=== PATIENT | female | born 1990 | race Caucasian/White ===

== ENCOUNTER 2019-07-05 22:49 | Emergency (ER) | payer MEDICAID ==
--- NOTE | 2019-07-05 23:58 | ERPHSYRPT ---
- History of Present Illness Time Seen by Provider: 07/05/19 23:50 Historian: patient, family Exam Limitations: no limitations Patient Subjective Stated Complaint: pt states she is 14 weeks , has been having right flank pain, spotting, and has been having an occasional loss of vision for about 1 week Triage Nursing Assessment: Pt a&o. Ambulated to bed without difficulty. Respirations easy and non-labored. Abdomen soft and non-tender with palpation Physician History: 28 y/o obese white female presents with right flank pain and intermittent vaginal spotting. pt states she is 14 weeks . pt also has had intermittent visual changes. pt sees dr. costello july 12. pt has had an ultrasound after . per her report there is a single intrauterine fetus. pt denies abd pain. pt denies cp, denies soa. pt states she frequently get utis Timing/Duration: day(s) (a few ) Abdominal Pain Onset Location: flank (right flank) Pain Radiation: flank (right flank ) Severity of Pain-Max: mild Severity of Pain-Current: mild Modifying Factors: Improves With: movement Associated Symptoms: No chest pain, No diarrhea, No fever/chills, No loss of appetite, No nausea, No shortness of breath, No vomiting Previous symptoms: no prior history Allergies/Adverse Reactions: ibuprofen Allergy (Verified 07/05/19 23:23) throat swells, cannot take prescription dose but can take over the counter tramadol Allergy (Verified 07/05/19 23:23) throat swells Home Medications: Vits W-Ca,Fe,FA(<1Mg) [] 1 tab PO DAILY 07/05/19 [History] - Review of Systems Constitutional: No Symptoms Eyes: No Symptoms Ears, Nose, & Throat: No Symptoms Respiratory: No Symptoms Cardiac: No Symptoms Abdominal/Gastrointestinal: No Symptoms Genitourinary Symptoms: Flank Pain (right flank pain) Musculoskeletal: No Symptoms Skin: No Symptoms Neurological: No Symptoms Psychological: No Symptoms Endocrine: No Symptoms Hematologic/Lymphatic: No Symptoms Immunological/Allergic: No Symptoms All Other Systems: Reviewed and Negative - Past Medical History Pertinent Past Medical History: Yes Neurological History: No Pertinent History ENT History: No Pertinent History Cardiac History: No Pertinent History Respiratory History: No Pertinent History Endocrine Medical History: No Pertinent History Musculoskeletal History: No Pertinent History GI Medical History: No Pertinent History History: No Pertinent History Psycho-Social History: Bipolar, Other Other Medical History: adhd, ptsd, miscarriage - Past Surgical History Past Surgical History: Yes Neuro Surgical History: No Pertinent History Cardiac: No Pertinent History Respiratory: No Pertinent History Gastrointestinal: No Pertinent History Genitourinary: Other Musculoskeletal: No Pertinent History Female Surgical History: No Pertinent History Other Surgical History: exploratory surgery - urethra - Social History Smoking Status: Former smoker Exposure to second hand smoke: No Drug Use: none Patient Lives Alone: No - Female History Hx Now: Yes Expected Date of Delivery: 12/31/19 Gestational Age: 12+3 - Nursing Vital Signs Nursing Vital Signs: Initial Vital Signs Temperature 97.9 F 07/05/19 23:13 Pulse Rate 108 H 07/05/19 23:13 Respiratory Rate 18 07/05/19 23:13 Blood Pressure 105/78 07/05/19 23:13 O2 Sat by Pulse Oximetry 97 07/05/19 23:13 Pain Scale Pain Intensity 9 - Physical Exam General Appearance: no apparent distress, alert, anxiety, obese Eye Exam: PERRL/EOMI, eyes nml inspection Ears, Nose, Throat Exam: normal ENT inspection, moist mucous membranes Neck Exam: normal inspection, non-tender, supple, full range of motion Respiratory Exam: normal breath sounds, lungs clear, airway intact, No chest tenderness, No respiratory distress Cardiovascular Exam: regular rate/rhythm, normal heart sounds, normal peripheral pulses Gastrointestinal/Abdomen Exam: soft, normal bowel sounds, No tenderness Pelvic Exam: not done Rectal Exam: not done Back Exam: normal inspection, normal range of motion, CVA tenderness (right ), No vertebral tenderness Extremity Exam: normal inspection, normal range of motion, pelvis stable Neurologic Exam: alert, oriented x 3, cooperative, clinical program director II-XII nml as tested Skin Exam: normal color, warm, dry Lymphatic Exam: No adenopathy SpO2 Interpretation: normal SpO2: 97 O2 Delivery: Room Air - Course Nursing assessment & vital signs reviewed: Yes Ordered Tests: Active Orders 24 hr Category Date Time Status IV Insertion STAT Care 07/05/19 23:58 Active AMYLASE Stat Lab 07/05/19 00:25 Completed CBC W DIFF Stat Lab 07/05/19 00:25 Completed CMP Stat Lab 07/05/19 00:25 Completed CULTURE,URINE Stat Lab 07/06/19 00:15 Received HCG, Quantitative (Inhouse) Stat Lab 07/05/19 00:25 Received LIPASE Stat Lab 07/05/19 00:25 Completed UA W/RFX UR CULTURE Stat Lab 07/06/19 00:15 Completed Medication Summary Generic Name Dose Route Start Last Admin Trade Name Freq PRN Reason Stop Dose Admin Ceftriaxone Sodium/Dextrose 1 g in 50 mls @ 100 mls/hr 07/06/19 00:49 00:54 Rocephin 1 Gm-D5w 50 Ml Bag IV 07/06/19 01:18 100 mls/hr STAT STA 100 mls/hr Administration Discontinued Medications Generic Name Dose Route Start Last Admin Trade Name Freq PRN Reason Stop Dose Admin Ceftriaxone Sodium/Dextrose Confirm 07/06/19 00:53 Rocephin 1 Gm-D5w 50 Ml Bag Administered 07/06/19 00:54 Dose 1 g in 50 mls @ ud IV .STK-MED ONE Lab/Rad Data: Laboratory Result Diagrams 07/05/19 00:25 07/05/19 00:25 Laboratory Results 07/06/19 07/05/19 07/05/19 Range/Units 00:15 00:25 00:25 WBC 10.6 H (4.0-10.5) K/mm3 RBC 4.58 (4.1-5.4) M/mm3 Hgb 13.0 (12.0-16.0) gm/dl Hct 38.5 (35-47) % MCV 84.1 (78-100) fl MCH 28.4 (26-32) pg MCHC 33.8 (32-36) g/dl RDW 15.6 H (11.5-14.0) % Plt Count 281 (150-450) K/mm3 MPV 9.3 (6-9.5) fl Gran % 74.2 H (36.0-66.0) % Eos # (Auto) 0.05 (0-0.5) Absolute Lymphs (auto) 2.50 (1.0-4.6) Absolute Monos (auto) 0.92 (0.0-1.3) Lymphocytes % 18.5 L (24.0-44.0) % Monocytes % 6.8 (0.0-12.0) % Eosinophils % 0.4 (0.00-5.0) % Basophils % 0.1 (0.0-0.4) % Absolute Granulocytes 10.06 H (1.4-6.9) Basophils # 0.02 (0-0.4) Sodium 137 (137-145) mmol/L Potassium 3.8 (3.5-5.1) mmol/L Chloride 108 H (98-107) mmol/L Carbon Dioxide 23 (22-30) mmol/L Anion Gap 10.6 (5-15) MEQ/L BUN 8 (7-17) mg/dL Creatinine 0.52 (0.52-1.04) mg/dL Estimated GFR > 60.0 ML/MIN Glucose 95 (74-106) mg/dL Calcium 9.0 (8.4-10.2) mg/dL Total Bilirubin 0.30 (0.2-1.3) mg/dL AST 11 L (14-36) U/L ALT 12 (0-35) U/L Alkaline Phosphatase 48 (38-126) U/L Serum Total Protein 7.2 (6.3-8.2) g/dL Albumin 3.6 (3.5-5.0) g/dL Amylase 58 (30-110) U/L Lipase 69 (23-300) U/L Urine Color ROD (YELLOW) Urine Appearance CLOUDY (CLEAR) Urine pH 5.0 (5-6) Ur Specific [place] 1.029 (1.005-1.025) Urine Protein NEGATIVE (Negative) Urine Ketones NEGATIVE (NEGATIVE) Urine Blood NEGATIVE (0-5) Baron/ul Urine Nitrite NEGATIVE (NEGATIVE) Urine Bilirubin NEGATIVE (NEGATIVE) Urine Urobilinogen 2 (0-1) mg/dL Ur Leukocyte Esterase LARGE (NEGATIVE) Urine WBC (Auto) 26-50 (0-5) /HPF Urine RBC (Auto) 3-5 (0-2) /HPF U Epithel Cells (Auto) MANY (FEW) /HPF Urine Bacteria (Auto) RARE (NEGATIVE) /HPF Urine Mucus (Auto) MANY (NEGATIVE) /HPF Urine Yeast (Budding) Rare (NEGATIVE) /HPF Urine Culture Reflexed YES (NO) Urine Glucose NEGATIVE (NEGATIVE) mg/dL - Progress Progress: improved Counseled pt/family regarding: lab results, diagnosis, need for follow-up - Departure Departure Disposition: Home Clinical Impression: Right flank pain, UTI (urinary tract infection) Condition: Stable Critical Care Time: No Referrals: DEVORA COSTELLO MD [Primary Care Provider] - Additional Instructions: drink plenty of fluids. follow up with dr. costello at scheduled appointment date and time. Prescriptions: Cephalexin Mh 500 mg [Keflex 500 mg] 500 mg PO TID #21 capsule
[2019-07-06 00:35] LABS: BASOPHIL % 0.1 % (0.0-0.4); Basophil (Absolute #) 0.02 (0-0.4); Eosinophil % 0.4 % (0.00-5.0); Eosinophil (Absolute #) 0.05 (0-0.5); Granulocyte Absolute (ANC) 10.06 (1.4-6.9); Granulocytes % 74.2 % (36.0-66.0); Hematocrit 38.5 % (35-47); Lymphocytes % 18.5 % (24.0-44.0); Mean Cell Volume 84.1 fl (78-100); Mean Corpuscular Hemoglobin 28.4 pg (26-32); Mean Corpuscular Hgb Concent. 33.8 g/dl (32-36); Mean Platelet Volume 9.3 fl (6-9.5); Monocyte (Absolute #) 0.92 (0.0-1.3); Monocytes % 6.8 % (0.0-12.0); Platelet Count 281 K/mm3 (150-450); Red Blood Count 4.58 M/mm3 (4.1-5.4); Red Cell Distribution Width 15.6 % (11.5-14.0)
[2019-07-06 00:41] LABS: Appearance CLOUDY (CLEAR); Bacteria RARE /HPF (NEGATIVE); Bilirubin NEGATIVE (NEGATIVE); Blood NEGATIVE Ery/ul (0-5); Epithelial Cells MANY /HPF (FEW); Glucose NEGATIVE (NEGATIVE); Ketones NEGATIVE (NEGATIVE); Leukocyte Esterase LARGE (NEGATIVE); Mucus MANY /HPF (NEGATIVE); Nitrite NEGATIVE (NEGATIVE); Protein,Urine Dip NEGATIVE (Negative); Specific Gravity 1.029 (1.005-1.025); Urobilinogen 2 mg/dL (0-1); WBC 26-50 /HPF (0-5)
[2019-07-06 00:43] LABS: Budding Yeast Rare /HPF (NEGATIVE)
[2019-07-06 00:47] LABS: ALBUMIN 3.6 g/dL (3.5-5.0); ALKALINE PHOSPHATASE 48 U/L (38-126); AMYLASE 58 U/L (30-110); ANION GAP 10.6 MEQ/L (5-15); BLOOD UREA NITROGEN 8 mg/dL (7-17); CHLORIDE 108 mmol/L (98-107); Carbon Dioxide 23 mmol/L (22-30); Creatinine 1 0.52 mg/dL (0.52-1.04); Glucose 95 mg/dL (74-106); LIPASE 69 U/L (23-300); Potassium 3.8 mmol/L (3.5-5.1); SGOT/AST 11 U/L (14-36); SGPT/ALT 12 U/L (0-35); SODIUM 137 mmol/L (137-145); Total Protein 7.2 g/dL (6.3-8.2)
[2019-07-06] MEDS ORDERED: ROCEPHIN 1 Gm-D5w 50 ml Bag** 1 G/50 ML IVPB IV ONE (00:53)
[2019-07-06] MEDS: ROCEPHIN 1 Gm-D5w 50 ml Bag** 1 G/50 ML IVPB IV STA (00:54)
[2019-07-06 00:55] LABS: White Blood Count 10.6 K/mm3 (4.0-10.5)
[2019-07-06 01:37] VITALS: BP 104/61; PULSE 78; O2SAT 98
== END 2019-07-06 01:44 | disposition home or self-care (01) ==
LOC: ED 22:49
DX: R10.9 Unspecified abdominal pain (principal); N39.0 Urinary tract infection, site not specified
CPT/HCPCS: 36000; 36415; 80053; 81001; 82150; 83690; 84702; 85025; 87086; 96365; 99284; J0696

== ENCOUNTER 2019-07-08 23:59 | Emergency (ER) | payer MEDICAID | END 2019-07-09 00:37 | disposition home or self-care (01) | LOC: ED 23:59 ==

== ENCOUNTER 2019-08-17 18:28 | Emergency (ER) | payer OTHER ==
--- NOTE | 2019-08-17 18:50 | ERPHSYRPT ---
- History of Present Illness Time Seen by Provider: 08/17/19 18:50 Historian: patient, family Exam Limitations: no limitations Patient Subjective Stated Complaint: pt here for vomiting for couple days now, with chills,left ear pain, she is 21 weeks ,denies any vaginal bleeding or contractions Triage Nursing Assessment: pt alert,waked in, resp easy, skin w/d/p, abd large soft,moves all ext well Physician History: patient is 41 weeks . Complains of mild abdominal discomfort and nausea vomiting for 2 days. Also has a some earache.patient is on Macrobid for UTI. Patient's PCP sent her here for IV hydration for possible dehydration. Timing/Duration: yesterday Activities at Onset: none Quality: aching Abdominal Pain Onset Location: periumbilical Pain Radiation: no radiation Severity of Pain-Max: mild Severity of Pain-Current: mild Modifying Factors: Improves With: nothing Associated Symptoms: nausea, vomiting, No back, No chest pain, No diaphoresis, No diarrhea, No loss of appetite, No neck pain, No rash, No shortness of breath , No syncope Previous symptoms: same symptoms as today, other (during this patient has had it intermittent vaginal spotting for which she has been put on the bedrest by her DIVER TENDER.) Allergies/Adverse Reactions: ibuprofen Allergy (Verified 07/05/19 23:23) throat swells, cannot take prescription dose but can take over the counter Influenza Virus Vaccines Allergy (Verified 08/17/19 18:47) tramadol Allergy (Verified 07/05/19 23:23) throat swells acetaminophen [From Tylenol] Adverse Reaction (Verified 08/17/19 18:47) Home Medications: Vits W-Ca,Fe,FA(<1Mg) [] 1 tab PO DAILY 07/05/19 [History] Nitrofurantoin Monohyd/M-Cryst [Nitrofurantoin [place]-Mcr 100 mg] 100 mg DAILY [History] Hx Tetanus, Diphtheria Vaccination/Date Given: Yes Hx Influenza Vaccination/Date Given: No Hx Pneumococcal Vaccination/Date Given: No Immunizations Up to Date: Yes - Review of Systems Constitutional: No Fever, No Chills Eyes: No Symptoms Ears, Nose, & Throat: No Symptoms Respiratory: No Cough, No Dyspnea Cardiac: No Chest Pain, No Edema, No Syncope Abdominal/Gastrointestinal: No Abdominal Pain, No Nausea, No Vomiting, No Diarrhea Genitourinary Symptoms: No Dysuria Musculoskeletal: No Back Pain, No Neck Pain Skin: No Rash Neurological: No Dizziness, No Focal Weakness, No Sensory Changes Psychological: No Symptoms Endocrine: No Symptoms All Other Systems: Reviewed and Negative - Past Medical History Pertinent Past Medical History: No Neurological History: No Pertinent History ENT History: No Pertinent History Cardiac History: No Pertinent History Respiratory History: No Pertinent History Endocrine Medical History: No Pertinent History Musculoskeletal History: No Pertinent History GI Medical History: No Pertinent History History: No Pertinent History Psycho-Social History: Bipolar, Other Female Reproductive Disorders: No Pertinent History Other Medical History: adhd, ptsd, miscarriage - Past Surgical History Past Surgical History: No Neuro Surgical History: No Pertinent History Cardiac: No Pertinent History Respiratory: No Pertinent History Gastrointestinal: No Pertinent History Genitourinary: Other Musculoskeletal: No Pertinent History Female Surgical History: No Pertinent History Other Surgical History: exploratory surgery - urethra - Social History Smoking Status: Never smoker Exposure to second hand smoke: No Drug Use: none Patient Lives Alone: No - Female History Hx Last Menstrual Period: march 2019 Hx Now: Yes Expected Date of Delivery: 12/31/19 - Nursing Vital Signs Nursing Vital Signs: Initial Vital Signs Temperature 98.4 F 08/17/19 18:41 Pulse Rate 81 08/17/19 18:41 Respiratory Rate 18 08/17/19 18:41 Blood Pressure 123/83 08/17/19 18:41 O2 Sat by Pulse Oximetry 98 08/17/19 18:41 Pain Scale Pain Intensity 8 - Physical Exam General Appearance: no apparent distress, alert, obese, other (patient examined presence of her fianc.) Eye Exam: PERRL/EOMI, eyes nml inspection Ears, Nose, Throat Exam: normal ENT inspection, TMs normal, pharynx normal, moist mucous membranes Neck Exam: normal inspection, non-tender, supple, full range of motion Respiratory Exam: normal breath sounds, lungs clear, No respiratory distress Cardiovascular Exam: regular rate/rhythm, normal heart sounds, other ( heart rate 166 per minute) Gastrointestinal/Abdomen Exam: soft, No tenderness, No mass Back Exam: normal inspection, normal range of motion, No CVA tenderness, No vertebral tenderness Extremity Exam: normal inspection, normal range of motion, pelvis stable Neurologic Exam: alert, oriented x 3, cooperative, normal mood/affect, nml cerebellar function, sensation nml, No motor deficits Skin Exam: normal color, warm, dry SpO2: 98 - Course Nursing assessment & vital signs reviewed: Yes Ordered Tests: Active Orders 24 hr Category Date Time Status IV Insertion STAT Care 08/17/19 18:54 Active IV Insertion STAT Care 08/17/19 19:03 Active CBC W DIFF Stat Lab 08/17/19 19:12 Completed CMP Stat Lab 08/17/19 19:12 Completed CULTURE,URINE Stat Lab 08/17/19 19:12 Received LIPASE Stat Lab 08/17/19 19:12 Completed UA W/RFX UR CULTURE Stat Lab 08/17/19 19:12 Completed Medication Summary Discontinued Medications Generic Name Dose Route Start Last Admin Trade Name Burtq PRN Reason Stop Dose Admin Sodium Chloride 1,000 mls @ 999 mls/hr 08/17/19 18:54 08/17/19 19:18 Sodium Chloride 0.9% 1000 Ml IV 08/17/19 19:54 999 mls/hr .Q1H1M STA Administration Sodium Chloride 1,000 mls @ 999 mls/hr 08/17/19 19:03 Sodium Chloride 0.9% 1000 Ml IV 08/17/19 20:03 .Q1H1M STA Sodium Chloride Confirm 08/17/19 19:13 Sodium Chloride 0.9% 1000 Ml Administered 08/17/19 19:14 Dose 1,000 mls @ ud .ROUTE .STK-MED ONE Ondansetron HCl 4 mg 08/17/19 18:54 08/17/19 19:19 Zofran 4 Mg/2 Ml Vial IV 08/17/19 18:55 4 mg STAT ONE Administration Ondansetron HCl Confirm 08/17/19 19:13 Zofran 4 Mg/2 Ml Vial Administered 08/17/19 19:14 Dose 4 mg .ROUTE .STK-MED ONE Lab/Rad Data: Laboratory Result Diagrams 08/17/19 19:12 08/17/19 19:12 Laboratory Results 08/17/19 08/17/19 08/17/19 Range/Units 19:12 19:12 19:12 WBC 16.7 H (4.0-10.5) K/mm3 RBC 4.37 (4.1-5.4) M/mm3 Hgb 12.6 (12.0-16.0) gm/dl Hct 37.8 (35-47) % MCV 86.5 (78-100) fl MCH 28.8 (26-32) pg MCHC 33.3 (32-36) g/dl RDW 15.5 H (11.5-14.0) % Plt Count 346 (150-450) K/mm3 MPV 9.1 (6-9.5) fl Gran % 81.4 H (36.0-66.0) % Eos # (Auto) 0.05 (0-0.5) Absolute Lymphs (auto) 2.28 (1.0-4.6) Absolute Monos (auto) 0.75 (0.0-1.3) Lymphocytes % 13.7 L (24.0-44.0) % Monocytes % 4.5 (0.0-12.0) % Eosinophils % 0.3 (0.00-5.0) % Basophils % 0.1 (0.0-0.4) % Absolute Granulocytes 13.59 H (1.4-6.9) Basophils # 0.01 (0-0.4) Sodium 138 (137-145) mmol/L Potassium 4.2 (3.5-5.1) mmol/L Chloride 107 (98-107) mmol/L Carbon Dioxide 21 L (22-30) mmol/L Anion Gap 14.6 (5-15) MEQ/L BUN 8 (7-17) mg/dL Creatinine 0.46 L (0.52-1.04) mg/dL Estimated GFR > 60.0 ML/MIN Glucose 98 (74-106) mg/dL Calcium 9.3 (8.4-10.2) mg/dL Total Bilirubin 0.40 (0.2-1.3) mg/dL AST 13 L (14-36) U/L ALT 10 (0-35) U/L Alkaline Phosphatase 74 (38-126) U/L Serum Total Protein 7.7 (6.3-8.2) g/dL Albumin 3.7 (3.5-5.0) g/dL Lipase 79 (23-300) U/L Urine Color ROD (YELLOW) Urine Appearance CLOUDY (CLEAR) Urine pH 5.0 (5-6) Ur Specific [employer] 1.026 (1.005-1.025) Urine Protein NEGATIVE (Negative) Urine Ketones NEGATIVE (NEGATIVE) Urine Blood NEGATIVE (0-5) Baron/ul Urine Nitrite NEGATIVE (NEGATIVE) Urine Bilirubin NEGATIVE (NEGATIVE) Urine Urobilinogen 4 (0-1) mg/dL Ur Leukocyte Esterase MODERATE (NEGATIVE) Urine WBC (Auto) 26-50 (0-5) /HPF Urine RBC (Auto) 0-2 (0-2) /HPF U Epithel Cells (Auto) MODERATE (FEW) /HPF Urine Bacteria (Auto) RARE (NEGATIVE) /HPF Amorphous Crystals FEW (NEGATIVE) /HPF Other Casts (Auto) 0-2 (NEGATIVE) /LPF Urine Mucus (Auto) MANY (NEGATIVE) /HPF Urine Culture Reflexed YES (NO) Urine Glucose NEGATIVE (NEGATIVE) mg/dL - Progress Progress: improved Progress Note: 08/17/19 20:03 ppatient had a slight itching on her left palm after her IV and the Zofran. No rash and no other symptoms. Counseled pt/family regarding: lab results (advised patient to see DIVER TENDER in a day or 2. No life or limb threatening condition on discharge.), diagnosis, need for follow-up - Departure Departure Disposition: Home Clinical Impression: Nausea & vomiting Qualifiers: Vomiting type: unspecified Vomiting Intractability: non-intractable Qualified Code(s): R11.2 - Nausea with vomiting, unspecified Condition: Good Critical Care Time: No Referrals: DEVORA PONCE MD [Primary Care Provider] - Instructions: Nausea -- Adult, Vomiting -- Adult Prescriptions: Ondansetron ODT 4 MG [Zofran Odt 4 mg] 4 mg SL Q6H PRN PRN 3 Days #10 tab.rapdis PRN Reason: Vomiting
[2019-08-17] MEDS ORDERED: Zofran 4 MG/2 ML VIAL IV ONE (18:54)
[2019-08-17] MEDS ORDERED: Sodium Chloride 0.9% 1000 ML 1,000 ML IV STA ×2 (18:54→19:03)
[2019-08-17] MEDS ORDERED: Sodium Chloride 0.9% 1000 ML 1,000 ML ONE (19:13)
[2019-08-17] MEDS ORDERED: Zofran 4 MG/2 ML VIAL ONE (19:13)
[2019-08-17 19:17] LABS: BASOPHIL % 0.1 % (0.0-0.4); Basophil (Absolute #) 0.01 (0-0.4); Eosinophil % 0.3 % (0.00-5.0); Eosinophil (Absolute #) 0.05 (0-0.5); Granulocyte Absolute (ANC) 13.59 (1.4-6.9); Granulocytes % 81.4 % (36.0-66.0); Hematocrit 37.8 % (35-47); Hemoglobin 12.6 gm/dl (12.0-16.0); Lymphocyte (Absolute #) 2.28 (1.0-4.6); Lymphocytes % 13.7 % (24.0-44.0); Mean Cell Volume 86.5 fl (78-100); Mean Corpuscular Hemoglobin 28.8 pg (26-32); Mean Corpuscular Hgb Concent. 33.3 g/dl (32-36); Mean Platelet Volume 9.1 fl (6-9.5); Monocyte (Absolute #) 0.75 (0.0-1.3); Monocytes % 4.5 % (0.0-12.0); Platelet Count 346 K/mm3 (150-450); Red Blood Count 4.37 M/mm3 (4.1-5.4); Red Cell Distribution Width 15.5 % (11.5-14.0); White Blood Count 16.7 K/mm3 (4.0-10.5)
[2019-08-17 19:24] LABS: Amourphous Crystal FEW /HPF (NEGATIVE); Appearance CLOUDY (CLEAR); Bacteria RARE /HPF (NEGATIVE); Bilirubin NEGATIVE (NEGATIVE); Blood NEGATIVE Ery/ul (0-5); Epithelial Cells MODERATE /HPF (FEW); Glucose NEGATIVE (NEGATIVE); Ketones NEGATIVE (NEGATIVE); Leukocyte Esterase MODERATE (NEGATIVE); Mucus MANY /HPF (NEGATIVE); Nitrite NEGATIVE (NEGATIVE); Protein,Urine Dip NEGATIVE (Negative); RBC 0-2 /HPF (0-2); Specific Gravity 1.026 (1.005-1.025); Urobilinogen 4 mg/dL (0-1); WBC 26-50 /HPF (0-5)
[2019-08-17 19:28] LABS: ALBUMIN 3.7 g/dL (3.5-5.0); ALKALINE PHOSPHATASE 74 U/L (38-126); ANION GAP 14.6 MEQ/L (5-15); BLOOD UREA NITROGEN 8 mg/dL (7-17); CHLORIDE 107 mmol/L (98-107); Calcium 9.3 mg/dL (8.4-10.2); Carbon Dioxide 21 mmol/L (22-30); Creatinine 1 0.46 mg/dL (0.52-1.04); Glucose 98 mg/dL (74-106); LIPASE 79 U/L (23-300); Potassium 4.2 mmol/L (3.5-5.1); SGOT/AST 13 U/L (14-36); SGPT/ALT 10 U/L (0-35); SODIUM 138 mmol/L (137-145); Total Protein 7.7 g/dL (6.3-8.2)
[2019-08-17 20:00] VITALS: BP 97/66; PULSE 87
[2019-08-17 20:06] VITALS: O2SAT 98
== END 2019-08-17 20:18 | disposition home or self-care (01) ==
LOC: ED 18:28
DX: R11.2 Nausea with vomiting, unspecified (principal)
CPT/HCPCS: 36000; 36415; 80053; 81001; 83690; 85025; 87086; 96360; 96374; 99284; J2405

== ENCOUNTER 2019-10-07 11:11 | Emergency (ER) | payer OTHER ==
--- NOTE | 2019-10-07 11:16 | ERPHSYRPT ---
- History of Present Illness Time Seen by Provider: 10/07/19 11:16 Source: patient Exam Limitations: no limitations Physician History: 28 y/o white female who is 28 weeks and whose grandmother has a h/o blood clots, presents with 1 week h/o right lower ext burning and central substernal sharp cp. pt denies soa. pt denies cardiac hx and denies herself having dvt or pulm emboli in past. pt denies abd pain and denies vaginal bleeding. pt was seen at pcp office service captain here and lab, ekg performed. pt sent here for further eval secondary to sx and elevated d dimer. Timing/Duration: week(s), intermittent Severity: mild Associated Symptoms: chest pain, other (right leg burning) Allergies/Adverse Reactions: ibuprofen Allergy (Verified 10/07/19 11:24) throat swells, cannot take prescription dose but can take over the counter Influenza Virus Vaccines Allergy (Verified 10/07/19 11:24) tramadol Allergy (Verified 10/07/19 11:24) throat swells acetaminophen [From Tylenol] Adverse Reaction (Verified 10/07/19 11:24) Home Medications: Vits W-Ca,Fe,FA(<1Mg) [] 1 tab PO DAILY 07/05/19 [History] Hx Tetanus, Diphtheria Vaccination/Date Given: Yes Hx Influenza Vaccination/Date Given: No Hx Pneumococcal Vaccination/Date Given: No - Review of Systems Constitutional: No Symptoms Eyes: No Symptoms Ears, Nose, & Throat: No Symptoms Respiratory: No Symptoms Cardiac: Chest Pain Abdominal/Gastrointestinal: No Symptoms Genitourinary Symptoms: No Symptoms Musculoskeletal: Other (right lower leg pain/burning) Skin: No Symptoms Neurological: No Symptoms Psychological: No Symptoms Endocrine: No Symptoms Hematologic/Lymphatic: No Symptoms Immunological/Allergic: No Symptoms All Other Systems: Reviewed and Negative - Past Medical History Pertinent Past Medical History: No Neurological History: No Pertinent History ENT History: No Pertinent History Cardiac History: No Pertinent History Respiratory History: No Pertinent History Endocrine Medical History: No Pertinent History Musculoskeletal History: No Pertinent History GI Medical History: No Pertinent History History: No Pertinent History Psycho-Social History: Bipolar, Other Female Reproductive Disorders: No Pertinent History Other Medical History: adhd, ptsd, miscarriage - Past Surgical History Past Surgical History: No Neuro Surgical History: No Pertinent History Cardiac: No Pertinent History Respiratory: No Pertinent History Gastrointestinal: No Pertinent History Genitourinary: Other Musculoskeletal: No Pertinent History Female Surgical History: No Pertinent History Other Surgical History: exploratory surgery - urethra - Social History Smoking Status: Never smoker Exposure to second hand smoke: No Drug Use: none Patient Lives Alone: No - Nursing Vital Signs Nursing Vital Signs: Initial Vital Signs Temperature 97.3 F 10/07/19 11:17 Pulse Rate 98 H 10/07/19 11:17 Respiratory Rate 18 10/07/19 11:17 Blood Pressure 121/68 10/07/19 11:17 O2 Sat by Pulse Oximetry 97 10/07/19 11:17 Pain Scale Pain Intensity 6 - Physical Exam General Appearance: no apparent distress, alert, anxiety Eye Exam: PERRL/EOMI, eyes nml inspection Ears, Nose, Throat Exam: normal ENT inspection, moist mucous membranes Neck Exam: normal inspection, non-tender, supple, full range of motion Respiratory Exam: normal breath sounds, lungs clear, airway intact, No chest tenderness, No respiratory distress Cardiovascular Exam: regular rate/rhythm, normal heart sounds, normal peripheral pulses Pelvic Exam: not done Rectal Exam: not done Back Exam: normal inspection, normal range of motion, No CVA tenderness, No vertebral tenderness Extremity Exam: normal inspection, normal range of motion, pelvis stable, tenderness (mild lateral lower leg on right ) Neurologic Exam: alert, oriented x 3, cooperative, neighborhood aide II-XII nml as tested, normal mood/affect, nml cerebellar function, nml station & gait Skin Exam: normal color, warm, dry, other (no cellulitis ) Lymphatic Exam: No adenopathy SpO2 Interpretation: normal O2 Delivery: Room Air - Course EKG Interpreted by Me: RATE (96), Sinus Rhythm, NORMAL INTERVALS, NORMAL QRS, Non-specific ST Changes, Other (sI/qIII pattern. no comparison ekg) Ordered Tests: Active Orders 24 hr Category Date Time Status IV Insertion STAT Care 10/07/19 11:37 Active CHEST WITH CONTRAST [CT] Stat Exams 10/07/19 11:36 Completed VENOUS UNILAT/LIMITED EXTREMIT [US] Stat Exams 10/07/19 11:37 Completed Medication Summary Generic Name Dose Route Start Last Admin Trade Name Freq PRN Reason Stop Dose Admin Sodium Chloride 1,000 mls @ 100 mls/hr 10/07/19 11:45 10/07/19 12:23 Sodium Chloride 0.9% 1000 Ml IV 11/06/19 11:44 100 mls/hr .Q10H ANITA Administration - Progress Progress: unchanged Progress Note: 10/07/19 13:17 cta chest-no pulm emboli right lower ext venous doppler-negative for dvt. Counseled pt/family regarding: lab results, diagnosis, need for follow-up, rad results - Departure Departure Disposition: Home Clinical Impression: Chest pain, Leg pain Condition: Stable Critical Care Time: No Referrals: DEVORA PONCE MD [Primary Care Provider] - Additional Instructions: follow up with director mobile and primary doctor as needed.
[2019-10-07 11:28] VITALS: O2SAT 97
[2019-10-07] MEDS ORDERED: Sodium Chloride 0.9% 1000 ML 1,000 ML ONE (11:41)
[2019-10-07] MEDS ORDERED: Sodium Chloride 0.9% 1000 ML 1,000 ML IV SCH (11:45)
--- NOTE | 2019-10-07 12:33 | XRAY ---
Indication: Lower leg pain. Elevated d-dimer. Two-dimensional sonogram and color Doppler imaging of the major venous vessels of the right leg was performed. Comparison: None Sonogram technically difficult due to patient body habitus. No thrombus seen in the examined deep venous vessels of the right leg including greater saphenous vein. Veins demonstrate normal compressibility. Venous waveforms are normal with and without augmentation. Impression: Right leg negative for DVT.
--- NOTE | 2019-10-07 13:13 | XRAY ---
Indication: Chest pain, right lower extremity pain, and elevated d-dimer. Patient 27 weeks . Multiple contiguous axial images obtained through the chest using 100 cc Isovue 370 contrast and PE protocol. Abdomen was appropriately shielded. Comparison: None There is adequate opacification of the pulmonary arteries to include the lobar and segmental branches. No filling defect or pulmonary embolus. Heart is not enlarged. Aorta is normal in course and caliber. No pathologic mediastinal/hilar lymphadenopathy. Lungs demonstrate minimal bilateral dependent atelectasis and minimal right middle lobe fibrosis/scarring. There is a 6 mm lingula noncalcified nodule, probably granulomatous in this demographic. No infiltrate or effusion. Bony thorax intact. Limited upper abdomen demonstrate fatty liver and 13.3 cm splenomegaly. Impression: 1. Negative pulmonary embolus. No acute cardiopulmonary abnormalities. 2. Lingula noncalcified micronodule probably granulomatous. 3. Fatty liver and splenomegaly. CT DI 35.40
[2019-10-07 13:41] VITALS: BP 97/48; PULSE 85
== END 2019-10-07 13:47 | disposition home or self-care (01) ==
LOC: ED 11:11
DX: R07.9 Chest pain, unspecified (principal); M79.604 Pain in right leg; R79.89 Other specified abnormal findings of blood chemistry; Z3A.28 28 weeks gestation of pregnancy
CPT/HCPCS: 36000; 36415; 71260; 80053; 82951; 84484; 85025; 85379; 93005; 93971; 99284

== ENCOUNTER 2019-10-24 15:51 | Emergency (ER) | payer OTHER ==
[2019-10-24] MEDS ORDERED: Pepcid 20 MG VIAL IV ONE ×2 (16:03→17:47)
[2019-10-24] MEDS ORDERED: Sodium Chloride 0.9% 1000 ML 1,000 ML IV STA (16:03)
[2019-10-24] MEDS ORDERED: MAALOX ES 30 ML UNIT DOSE PO ONE (16:04)
--- NOTE | 2019-10-24 16:07 | ERPHSYRPT ---
- History of Present Illness Time Seen by Provider: 10/24/19 15:55 Historian: patient Exam Limitations: no limitations Physician History: Patient began with shortness of breath two days ago, then chest pain yesterday. Symptoms began after eating food her mother brought to her home. Patient is a at 31 weeks with no difficulties during this . Patient denies any vaginal bleeding, leakage of fluids, headache, abdominal pain, back pain with active movements. Timing/Duration: day(s) (2) Activities at Onset: none Quality: aching Location: central Chest Pain Radiation: no radiation Severity of Pain-Max: moderate Severity of Pain-Current: mild Modifying Factors: Worsens With: eating Associated Symptoms: shortness of breath, No nausea, No vomiting, No palpitations, No heartburn, No abdominal pain, No cough, No hurts to breathe, No diaphoresis, No chills, No fever, No fatigue, No weakness, No swelling/lump in chest, No syncope, No rash, No headache, No dizziness, No edema, No back pain Prior Chest Pain/Cardiac Workup: non-cardiac, recently seen/treated Nitro Today/Relief: no nitro taken today Aspirin Treatment Today: no aspirin today Allergies/Adverse Reactions: ibuprofen Allergy (Verified 10/24/19 15:58) throat swells, cannot take prescription dose but can take over the counter Influenza Virus Vaccines Allergy (Verified 10/24/19 15:58) tramadol Allergy (Verified 10/24/19 15:58) throat swells acetaminophen [From Tylenol] Adverse Reaction (Verified 10/24/19 15:58) Home Medications: Vits W-Ca,Fe,FA(<1Mg) [] 1 tab PO DAILY 07/05/19 [History] Hx Tetanus, Diphtheria Vaccination/Date Given: Yes Hx Influenza Vaccination/Date Given: No Hx Pneumococcal Vaccination/Date Given: No - Review of Systems Constitutional: No Fever, No Chills, No Fatigue Eyes: No Eye Pain, No Vision Changes Ears, Nose, & Throat: No Nose Congestion, No Mouth Swelling, No Hoarse, No Painful Swallowing Respiratory: Dyspnea, No Cough Cardiac: Chest Pain, No Edema, No Syncope Abdominal/Gastrointestinal: No Abdominal Pain, No Nausea, No Vomiting, No Diarrhea Genitourinary Symptoms: No Dysuria, No Frequency, No Hematuria, No Flank Pain Musculoskeletal: No Back Pain, No Neck Pain, No Myalgias Skin: No Pruritis, No Rash Neurological: No Dizziness, No Focal Weakness, No Headache, No Parasthesia, No Sensory Changes Psychological: No Anxiety, No Emotional Lability Endocrine: No Excessive Sweating Hematologic/Lymphatic: No Easy Bleeding, No Easy Bruising All Other Systems: Reviewed and Negative - Past Medical History Pertinent Past Medical History: No Neurological History: No Pertinent History ENT History: No Pertinent History Cardiac History: No Pertinent History Respiratory History: No Pertinent History Endocrine Medical History: No Pertinent History Musculoskeletal History: No Pertinent History GI Medical History: No Pertinent History History: No Pertinent History Psycho-Social History: Bipolar, Other Female Reproductive Disorders: No Pertinent History Other Medical History: adhd, ptsd, miscarriage - Past Surgical History Past Surgical History: No Neuro Surgical History: No Pertinent History Cardiac: No Pertinent History Respiratory: No Pertinent History Gastrointestinal: No Pertinent History Genitourinary: Other Musculoskeletal: No Pertinent History Female Surgical History: No Pertinent History Other Surgical History: exploratory surgery - urethra - Social History Smoking Status: Never smoker Exposure to second hand smoke: No Drug Use: none Patient Lives Alone: No - Nursing Vital Signs Nursing Vital Signs: Initial Vital Signs Temperature 97.9 F 10/24/19 15:59 Pulse Rate 84 10/24/19 15:59 Respiratory Rate 18 10/24/19 15:59 Blood Pressure 103/48 10/24/19 15:59 O2 Sat by Pulse Oximetry 98 10/24/19 15:59 Pain Scale Pain Intensity 6 - Physical Exam General Appearance: no apparent distress, alert Eye Exam: PERRL/EOMI, eyes nml inspection, No scleral icterus, No pale conjunctivae Ears, Nose, Throat Exam: normal ENT inspection, pharynx normal, moist mucous membranes Neck Exam: normal inspection, non-tender, supple, full range of motion, No meningismus, No Brudzinski, No lymphadenopathy Respiratory Exam: normal breath sounds, lungs clear, airway intact, No chest tenderness, No respiratory distress, No diminished breath sounds, No accessory muscle use, No crackles/rales, No rhonchi, No wheezing, No stridor Cardiovascular Exam: regular rate/rhythm, normal heart sounds, normal peripheral pulses, capillary refill <2 sec Gastrointestinal/Abdomen Exam: soft, No tenderness, No mass, No guarding, No pulsatile mass, No rebound Back Exam: normal inspection, No CVA tenderness, No vertebral tenderness Extremity Exam: normal inspection, normal range of motion, No calf tenderness, No debra's sign, No pedal edema, No swelling Neurologic Exam: alert, oriented x 3, cooperative, manager transition II-XII nml as tested, normal mood/affect, sensation nml, No motor deficits Skin Exam: normal color, warm, dry, No rash, No jaundice, No cyanosis SpO2 Interpretation: normal O2 Delivery: Room Air - Course Nursing assessment & vital signs reviewed: Yes EKG Interpreted by Me: RATE (82), Sinus Rhythm, NORMAL AXIS, NORMAL INTERVALS, NORMAL QRS, NORMAL ST-T, Other (negative for any changes in comparison to EKG from 10/07/2019) - Radiology Exams Chest X-ray Interpretation: Reviewed by me, No Pneumonia, No Pneumothorax, Nml Heart Size, No Infiltrates, Nml Mediastinum, Other (per Radiologist interpretation) - Radiology Ultrasound Exam Venous Lower Extremity Ultrasound: Other (negative bilateral extremity venous duplex for any DVTs) Ordered Tests: Active Orders 24 hr Category Date Time Status Pin Cleaner STAT Care 10/24/19 16:03 Active EKG-ER Only STAT Care 10/24/19 16:03 Active IV Insertion STAT Care 10/24/19 16:03 Active Pulse Oximetry (ED) STAT Care 10/24/19 16:03 Active CHEST 1 VIEW (PORTABLE) Stat Exams 10/24/19 16:03 Completed VENOUS BILATERAL EXTREMITY [US] Stat Exams 10/24/19 16:05 Completed CBC W DIFF Stat Lab 10/24/19 16:20 Completed CK-Creatinine Phosphokinase Stat Lab 10/24/19 16:20 Completed CMP Stat Lab 10/24/19 16:20 Completed NT PRO BNP Stat Lab 10/24/19 16:20 Completed PROTIME WITH INR Stat Lab 10/24/19 16:20 Completed PTT Stat Lab 10/24/19 16:20 Completed TROPONIN Q3H Lab 10/24/19 16:20 Completed TROPONIN Q3H Lab 10/24/19 19:15 Ordered TROPONIN Q3H Lab 10/24/19 22:15 Ordered TROPONIN Q3H Lab 10/25/19 01:15 Ordered TROPONIN Q3H Lab 10/25/19 04:15 Ordered UA W/RFX UR CULTURE Stat Lab 10/24/19 16:13 Completed Urine Triage Profile Stat Lab 10/24/19 Completed Medication Summary Discontinued Medications Generic Name Dose Route Start Last Admin Trade Name Helen PRN Reason Stop Dose Admin Al Hydrox/Mg Hydrox/Simethicone 30 ml 10/24/19 16:04 10/24/19 17:49 Maalox Es 30 Ml Unit Dose PO 10/24/19 16:05 30 ml STAT ONE Administration Al Hydrox/Mg Hydrox/Simethicone Confirm 10/24/19 17:47 Maalox Es 30 Ml Unit Dose Administered 10/24/19 17:48 Dose 30 ml .ROUTE .STK-MED ONE Famotidine 20 mg 10/24/19 16:03 10/24/19 17:49 Pepcid 20 Mg Vial IV 10/24/19 16:04 20 mg STAT ONE Administration Famotidine Confirm 10/24/19 17:47 Pepcid 20 Mg Vial Administered 10/24/19 17:48 Dose 20 mg IV .STK-MED ONE Sodium Chloride 1,000 mls @ 999 mls/hr 10/24/19 16:03 10/24/19 17:50 Sodium Chloride 0.9% 1000 Ml IV 10/24/19 17:03 999 mls/hr .Q1H1M STA Administration Sodium Chloride Confirm 10/24/19 17:47 Sodium Chloride 0.9% 1000 Ml Administered 10/24/19 17:48 Dose 1,000 mls @ ud .ROUTE .STK-MED ONE Lab/Rad Data: Laboratory Result Diagrams 10/24/19 16:20 10/24/19 16:20 Laboratory Results 10/24/19 10/24/19 10/24/19 Range/Units Unknown 16:20 16:20 WBC (4.0-10.5) K/mm3 RBC (4.1-5.4) M/mm3 Hgb (12.0-16.0) gm/dl Hct (35-47) % MCV (78-100) fl MCH (26-32) pg MCHC (32-36) g/dl RDW (11.5-14.0) % Plt Count (150-450) K/mm3 MPV (6-9.5) fl Gran % (36.0-66.0) % Eos # (Auto) (0-0.5) Absolute Lymphs (auto) (1.0-4.6) Absolute Monos (auto) (0.0-1.3) Lymphocytes % (24.0-44.0) % Monocytes % (0.0-12.0) % Eosinophils % (0.00-5.0) % Basophils % (0.0-0.4) % Absolute Granulocytes (1.4-6.9) Basophils # (0-0.4) PT 11.1 (9.95-12.35) SECONDS INR 0.98 (0.8-3.0) APTT 27.2 (25.3-37.0) SECONDS Sodium (137-145) mmol/L Potassium (3.5-5.1) mmol/L Chloride (98-107) mmol/L Carbon Dioxide (22-30) mmol/L Anion Gap (5-15) MEQ/L BUN (7-17) mg/dL Creatinine (0.52-1.04) mg/dL Estimated GFR ML/MIN Glucose (74-106) mg/dL Calcium (8.4-10.2) mg/dL Total Bilirubin (0.2-1.3) mg/dL AST (14-36) U/L ALT (0-35) U/L Alkaline Phosphatase (38-126) U/L Creatine Kinase (30-135) U/L Troponin I < 0.012 (0.000-0.034) ng/mL NT-Pro-B Natriuret Pep (0-450) pg/mL Serum Total Protein (6.3-8.2) g/dL Albumin (3.5-5.0) g/dL Urine Color (YELLOW) Urine Appearance (CLEAR) Urine pH (5-6) Ur Specific [place] (1.005-1.025) Urine Protein (Negative) Urine Ketones (NEGATIVE) Urine Blood (0-5) Baron/ul Urine Nitrite (NEGATIVE) Urine Bilirubin (NEGATIVE) Urine Urobilinogen (0-1) mg/dL Ur Leukocyte Esterase (NEGATIVE) Urine WBC (Auto) (0-5) /HPF Urine RBC (Auto) (0-2) /HPF U Epithel Cells (Auto) (FEW) /HPF Urine Bacteria (Auto) (NEGATIVE) /HPF Urine Mucus (Auto) (NEGATIVE) /HPF Urine Culture Reflexed (NO) Urine Glucose (NEGATIVE) mg/dL Urine Opiates Level NEGATIVE (NEGATIVE) Ur Methadone NEGATIVE (NEGATIVE) Urine Barbiturates NEGATIVE (NEGATIVE) Ur Phencyclidine (PCP) NEGATIVE (NEGATIVE) Urine Amphetamine NEGATIVE (NEGATIVE) U Benzodiazepine Level NEGATIVE (NEGATIVE) Urine Cocaine NEGATIVE (NEGATIVE) Urine Marijuana (THC) NEGATIVE (NEGATIVE) 10/24/19 10/24/19 10/24/19 Range/Units 16:20 16:20 16:13 WBC 14.6 H (4.0-10.5) K/mm3 RBC 4.02 L (4.1-5.4) M/mm3 Hgb 11.2 L (12.0-16.0) gm/dl Hct 35.0 (35-47) % MCV 87.1 (78-100) fl MCH 27.9 (26-32) pg MCHC 32.0 (32-36) g/dl RDW 14.5 H (11.5-14.0) % Plt Count 324 (150-450) K/mm3 MPV 8.8 (6-9.5) fl Gran % 80.9 H (36.0-66.0) % Eos # (Auto) 0.05 (0-0.5) Absolute Lymphs (auto) 1.95 (1.0-4.6) Absolute Monos (auto) 0.77 (0.0-1.3) Lymphocytes % 13.4 L (24.0-44.0) % Monocytes % 5.3 (0.0-12.0) % Eosinophils % 0.3 (0.00-5.0) % Basophils % 0.1 (0.0-0.4) % Absolute Granulocytes 11.81 H (1.4-6.9) Basophils # 0.02 (0-0.4) PT (9.95-12.35) SECONDS INR (0.8-3.0) APTT (25.3-37.0) SECONDS Sodium 137 (137-145) mmol/L Potassium 4.3 (3.5-5.1) mmol/L Chloride 105 (98-107) mmol/L Carbon Dioxide 26 (22-30) mmol/L Anion Gap 11.0 (5-15) MEQ/L BUN 8 (7-17) mg/dL Creatinine 0.53 (0.52-1.04) mg/dL Estimated GFR > 60.0 ML/MIN Glucose 110 H (74-106) mg/dL Calcium 9.3 (8.4-10.2) mg/dL Total Bilirubin 0.30 (0.2-1.3) mg/dL AST 13 L (14-36) U/L ALT 9 (0-35) U/L Alkaline Phosphatase 87 (38-126) U/L Creatine Kinase 22 L (30-135) U/L Troponin I (0.000-0.034) ng/mL NT-Pro-B Natriuret Pep 34.1 (0-450) pg/mL Serum Total Protein 7.2 (6.3-8.2) g/dL Albumin 3.4 L (3.5-5.0) g/dL Urine Color YELLOW (YELLOW) Urine Appearance SLIGHTLY CLOUDY (CLEAR) Urine pH 6.0 (5-6) Ur Specific [place] 1.017 (1.005-1.025) Urine Protein NEGATIVE (Negative) Urine Ketones NEGATIVE (NEGATIVE) Urine Blood NEGATIVE (0-5) Baron/ul Urine Nitrite NEGATIVE (NEGATIVE) Urine Bilirubin NEGATIVE (NEGATIVE) Urine Urobilinogen NEGATIVE (0-1) mg/dL Ur Leukocyte Esterase MODERATE (NEGATIVE) Urine WBC (Auto) 11-15 (0-5) /HPF Urine RBC (Auto) 0-2 (0-2) /HPF U Epithel Cells (Auto) FEW (FEW) /HPF Urine Bacteria (Auto) FEW (NEGATIVE) /HPF Urine Mucus (Auto) SLIGHT (NEGATIVE) /HPF Urine Culture Reflexed NO (NO) Urine Glucose NEGATIVE (NEGATIVE) mg/dL Urine Opiates Level (NEGATIVE) Ur Methadone (NEGATIVE) Urine Barbiturates (NEGATIVE) Ur Phencyclidine (PCP) (NEGATIVE) Urine Amphetamine (NEGATIVE) U Benzodiazepine Level (NEGATIVE) Urine Cocaine (NEGATIVE) Urine Marijuana (THC) (NEGATIVE) - Progress Progress: re-examined Air Movement: good Progress Note: 10/24/19 18:07 Patient has no chest pain or dyspnea at this time and through most of her time in the emergency department. Patient has been in sinus rhythm throughout her time on the monitor tech with no tachycardia, no arrhythmias, and no signs of any ischemia, injury or infarction. Patient has been hemodynamically in good condition throughout her time in the emergency department. 10/24/19 18:21 Review, patient had heart tones in 140s per nursing report. Patient is in no type of distress and hemodynamically in good condition for a patient at her stage of . With patient having a negative duplex venous studies today and a negative CTA of the Chest on 10/07/2019 with no abnormalities on her presentation, patient does not require inpatient monitoring or another CTA of the chest at this time. Patient will be discharged home with follow-up with Dr Luis on 10/25/[address] Ponce is out this week. Blood Culture(s) Obtained: No Antibiotics given: No Discussed with Dr.: Sergio, Other (@18:15, Discussed the case with Dr Alberto Luis, [facility], covering for Dr Ponce. With patient's presentation, negative duplex venous studies today and negative CT Chest for Pulmonary Embolus on 10/07, patient can be discharged home and follow-up in the office.) Counseled pt/family regarding: lab results, diagnosis, need for follow-up, rad results - Departure Departure Disposition: Home Clinical Impression: Chest pain Qualifiers: Chest pain type: unspecified Qualified Code(s): R07.9 - Chest pain, unspecified Dyspnea Qualifiers: Dyspnea type: unspecified Qualified Code(s): R06.00 - Dyspnea, unspecified Condition: Good Critical Care Time: No Referrals: DEVORA PONCE MD [Primary Care Provider] - 10/24/19 ALBERTO LUIS DO [ACTIVE STAFF] - 10/25/19 ([facility] for your reference to follow- up since Dr Ponce is out of town) Instructions: Chest Pain (DC), Shortness of Breath (Dyspnea) (DC) Additional Instructions: Followup with [facility] referral on 10/25/2019. Return immediately back to the emergency room if chest pain returns or worsens, shortness of breath returns or worsens, any new swelling of any extremity or abdomen, new abdominal pain, any vaginal bleeding, any leakage of fluid from the vagina, decreased movements, new headache, new vision changes, or any other concerning signs or symptoms not present at today's emergency department visit for immediate reevaluation in the emergency department.
[2019-10-24 16:23] LABS: Absolute Neutrophil Ct (ANC) 11.81 (1.4-6.9); BASOPHIL % 0.1 % (0.0-0.4); Basophil (Absolute #) 0.02 (0-0.4); Eosinophil % 0.3 % (0.00-5.0); Eosinophil (Absolute #) 0.05 (0-0.5); Hemoglobin 11.2 gm/dl (12.0-16.0); Lymphocyte (Absolute #) 1.95 (1.0-4.6); Lymphocytes % 13.4 % (24.0-44.0); Mean Cell Volume 87.1 fl (78-100); Mean Corpuscular Hemoglobin 27.9 pg (26-32); Mean Platelet Volume 8.8 fl (6-9.5); Monocyte (Absolute #) 0.77 (0.0-1.3); Monocytes % 5.3 % (0.0-12.0); Neutrophil % 80.9 % (36.0-66.0); Platelet Count 324 K/mm3 (150-450); Red Blood Count 4.02 M/mm3 (4.1-5.4); Red Cell Distribution Width 14.5 % (11.5-14.0); White Blood Count 14.6 K/mm3 (4.0-10.5)
[2019-10-24 16:31] LABS: INR 0.98 (0.8-3.0); PROTIME 11.1 SECONDS (9.95-12.35)
[2019-10-24 16:34] LABS: PTT 27.2 SECONDS (25.3-37.0)
[2019-10-24 16:39] LABS: Appearance SLIGHTLY CLOUDY (CLEAR); Bacteria FEW /HPF (NEGATIVE); Bilirubin NEGATIVE (NEGATIVE); Blood NEGATIVE Ery/ul (0-5); Epithelial Cells FEW /HPF (FEW); Glucose NEGATIVE (NEGATIVE); Ketones NEGATIVE (NEGATIVE); Leukocyte Esterase MODERATE (NEGATIVE); Mucus SLIGHT /HPF (NEGATIVE); Nitrite NEGATIVE (NEGATIVE); Protein,Urine Dip NEGATIVE (Negative); RBC 0-2 /HPF (0-2); Specific Gravity 1.017 (1.005-1.025); Urobilinogen NEGATIVE mg/dL (0-1)
[2019-10-24 16:39] LABS: Amphetamine,Urine NEGATIVE (NEGATIVE); Barbiturate,Urine NEGATIVE (NEGATIVE); Benzodiazepine,Urine NEGATIVE (NEGATIVE); Cocaine,Urine NEGATIVE (NEGATIVE); Methadone,Urine NEGATIVE (NEGATIVE); Opiate,Urine NEGATIVE (NEGATIVE); PCP,Urine NEGATIVE (NEGATIVE); THC,Urine NEGATIVE (NEGATIVE)
--- NOTE | 2019-10-24 16:44 | XRAY ---
Indication: Chest pain. Comparison: None Portable chest demonstrates normal heart, lungs, and bony thorax.
[2019-10-24 16:45] LABS: ALBUMIN 3.4 g/dL (3.5-5.0); ALKALINE PHOSPHATASE 87 U/L (38-126); BLOOD UREA NITROGEN 8 mg/dL (7-17); CHLORIDE 105 mmol/L (98-107); CK-Creatinine Phosphokinase 22 U/L (30-135); Calcium 9.3 mg/dL (8.4-10.2); Carbon Dioxide 26 mmol/L (22-30); Creatinine 1 0.53 mg/dL (0.52-1.04); Glucose 110 mg/dL (74-106); NT PRO BNP 34.1 pg/mL (0-450); Potassium 4.3 mmol/L (3.5-5.1); SGOT/AST 13 U/L (14-36); SGPT/ALT 9 U/L (0-35); SODIUM 137 mmol/L (137-145); Total Protein 7.2 g/dL (6.3-8.2)
--- NOTE | 2019-10-24 16:59 | XRAY ---
Indication: Chest pain. Two-dimensional sonogram and color Doppler imaging of the major venous vessels of the left and right leg was performed. Comparison: Right leg venous sonogram October 07, 2019. No thrombus seen in the examined deep venous vessels of the left and right leg. Veins demonstrate normal compressibility. Venous waveforms are normal with and without augmentation. Impression: Left and right legs negative for DVT.
[2019-10-24] MEDS ORDERED: MAALOX ES 30 ML UNIT DOSE ONE (17:47)
[2019-10-24] MEDS ORDERED: Sodium Chloride 0.9% 1000 ML 1,000 ML ONE (17:47)
[2019-10-24 18:49] VITALS: BP 95/62; PULSE 90; O2SAT 98
== END 2019-10-24 18:59 | disposition home or self-care (01) ==
LOC: ED 15:51
DX: R07.9 Chest pain, unspecified (principal); N30.00 Acute cystitis without hematuria; R06.00 Dyspnea, unspecified
CPT/HCPCS: 36000; 36415; 71045; 80053; 80307; 81001; 82550; 83880; 84484; 85025; 85610; 85730; 93005; 93041; 93970; 94760; 96374; 99284; A9270-GY

== ENCOUNTER 2019-12-14 16:05 | Observation (INO) | payer OTHER ==
[2019-12-14 16:55] VITALS: BP 110/54; PULSE 97
[2019-12-14 17:55] LABS: Appearance CLOUDY (CLEAR); Bacteria RARE /HPF (NEGATIVE); Bilirubin NEGATIVE (NEGATIVE); Blood NEGATIVE Ery/ul (0-5); Epithelial Cells MODERATE /HPF (FEW); Glucose NEGATIVE (NEGATIVE); Hyaline Casts 0-2 /LPF (0-2); Ketones NEGATIVE (NEGATIVE); Leukocyte Esterase MODERATE (NEGATIVE); Mucus SLIGHT /HPF (NEGATIVE); Nitrite NEGATIVE (NEGATIVE); Protein,Urine Dip NEGATIVE (Negative); RBC 0-2 /HPF (0-2); Specific Gravity 1.023 (1.005-1.025); Urobilinogen 2 mg/dL (0-1)
[2019-12-14 18:15] LABS: Amphetamine,Urine NEGATIVE (NEGATIVE); Barbiturate,Urine NEGATIVE (NEGATIVE); Benzodiazepine,Urine NEGATIVE (NEGATIVE); Cocaine,Urine NEGATIVE (NEGATIVE); Methadone,Urine NEGATIVE (NEGATIVE); Opiate,Urine NEGATIVE (NEGATIVE); PCP,Urine NEGATIVE (NEGATIVE); THC,Urine NEGATIVE (NEGATIVE)
[2019-12-14] MEDS ORDERED: Diflucan 100 MG PO ONE (18:16)
[2019-12-14] MEDS ORDERED: Diflucan 100 MG ONE (18:19)
== END 2019-12-14 18:45 | disposition home or self-care (01) ==
LOC: OB 16:05
PROVIDERS: ADMIT Family Medicine; ATTEND Family Medicine
DX: O23.593 Infection of other part of genital tract in pregnancy, third trimester (principal); Z3A.37 37 weeks gestation of pregnancy
CPT/HCPCS: 80307; 81001; 83986; 87086; G0378; A9270-GY

== ENCOUNTER 2019-12-22 12:01 | Observation (INO) | payer OTHER ==
[2019-12-22 12:54] VITALS: BP 127/84; PULSE 93; O2SAT 95
[2019-12-22 13:46] LABS: Amphetamine,Urine NEGATIVE (NEGATIVE); Barbiturate,Urine NEGATIVE (NEGATIVE); Benzodiazepine,Urine NEGATIVE (NEGATIVE); Cocaine,Urine NEGATIVE (NEGATIVE); Methadone,Urine NEGATIVE (NEGATIVE); Opiate,Urine NEGATIVE (NEGATIVE); PCP,Urine NEGATIVE (NEGATIVE); THC,Urine NEGATIVE (NEGATIVE)
== END 2019-12-22 14:42 | disposition home or self-care (01) ==
LOC: OB 12:01
PROVIDERS: ADMIT Family Medicine; ATTEND Family Medicine
DX: Z34.03 Encounter for supervision of normal first pregnancy, third trimester (principal)
CPT/HCPCS: 80307; G0378

== ENCOUNTER 2019-12-27 08:49 | Inpatient (IN) | payer OTHER ==
[2019-12-27] MEDS ORDERED: BRETHINE 1 MG/ML SQ PRN ×2 (12:23→16:00)
[2019-12-27] MEDS ORDERED: OMNIPEN 2 GM / NACL 100ML 100 ML IV ONE (16:00)
[2019-12-27] MEDS ORDERED: Cervidil 10 MG VAG SCH (16:00)
[2019-12-27 17:28] LABS: Absolute Neutrophil Ct (ANC) 13.56 (1.4-6.9); BASOPHIL % 0.1 % (0.0-0.4); Basophil (Absolute #) 0.01 (0-0.4); Eosinophil % 0.2 % (0.00-5.0); Eosinophil (Absolute #) 0.03 (0-0.5); Hematocrit 34.2 % (35-47); Hemoglobin 10.8 gm/dl (12.0-16.0); Lymphocyte (Absolute #) 2.11 (1.0-4.6); Lymphocytes % 12.6 % (24.0-44.0); Mean Cell Volume 81.6 fl (78-100); Mean Corpuscular Hemoglobin 25.8 pg (26-32); Mean Corpuscular Hgb Concent. 31.6 g/dl (32-36); Mean Platelet Volume 9.7 fl (7.5-11.0); Monocyte (Absolute #) 0.97 (0.0-1.3); Monocytes % 5.8 % (0.0-12.0); Neutrophil % 81.3 % (36.0-66.0); Platelet Count 326 K/mm3 (150-450); Red Blood Count 4.19 M/mm3 (4.1-5.4); Red Cell Distribution Width 15.9 % (11.5-14.0); White Blood Count 16.7 K/mm3 (4.0-10.5)
[2019-12-27 18:16] LABS: Amphetamine,Urine NEGATIVE (NEGATIVE); Barbiturate,Urine NEGATIVE (NEGATIVE); Benzodiazepine,Urine NEGATIVE (NEGATIVE); Cocaine,Urine NEGATIVE (NEGATIVE); Methadone,Urine NEGATIVE (NEGATIVE); Opiate,Urine NEGATIVE (NEGATIVE); PCP,Urine NEGATIVE (NEGATIVE); THC,Urine NEGATIVE (NEGATIVE)
[2019-12-28] MEDS: Lactated Ringers 1,000 ML IV SCH ×2 (02:59→08:06)
[2019-12-28] MEDS ORDERED: PITOCIN 30 UNITS/ LR 500 ML 500 ML IV ONE (04:51)
[2019-12-28] MEDS: OMNIPEN 1GM / NaCl 100ML 100 ML IV SCH ×3 (04:52→14:23)
[2019-12-28] MEDS ORDERED: XYLOCAINE 1% HCL 20 ML MDV IJ PRN (05:00)
[2019-12-28] MEDS ORDERED: PITOCIN 30 UNITS/ LR 500 ML 500 ML IV SCH ×4 (05:00→06:00)
[2019-12-28] MEDS ORDERED: OMNIPEN 2 GM / NACL 100ML 100 ML IV ONE (06:00)
[2019-12-28] MEDS: PITOCIN 30 UNITS/ LR 500 ML 500 ML IV SCH (06:00)
[2019-12-28] MEDS ORDERED: Ephedrine Sulfate 50 MG/ML IV PRN (08:59)
[2019-12-28] MEDS ORDERED: Lactated Ringers 1,000 ML IV ONE (08:59)
[2019-12-28] MEDS ORDERED: OB EPIDURAL NAROPIN/SUFENTANIL IN NACL EPIDURAL PRN (08:59)
[2019-12-28] MEDS ORDERED: XYLOCAINE 2%/Epi 1:200000 20ML VIAL MPF ONE (09:51)
[2019-12-28] MEDS ORDERED: XYLOCAINE 2%/Epi 1:200000 20ML VIAL MPF IJ PRN (10:00)
[2019-12-28] MEDS ORDERED: CEFAZOLIN 2 GM-D5W BAG** 2 GM/50 ML ML IV ONE (17:38)
[2019-12-28] MEDS ORDERED: Reglan 10 MG/2 ML ONE (17:38)
[2019-12-28] MEDS ORDERED: Pepcid 20 MG VIAL IV SCH (17:45)
[2019-12-28] MEDS ORDERED: BICITRA 30 ML CUP PO SCH (17:45)
[2019-12-28] MEDS ORDERED: Reglan 10 MG/2 ML IV SCH (17:45)
[2019-12-28] MEDS ORDERED: CEFAZOLIN 2 GM-D5W BAG** 2 GM/50 ML ML IV SCH (18:00)
[2019-12-28 18:22] LABS: INR 1.01 (0.8-3.0); PROTIME 11.4 SECONDS (9.95-12.35)
[2019-12-28] MEDS ORDERED: Lactated Ringers 2,000 ML IV ONE (18:35)
[2019-12-28] MEDS ORDERED: Pitocin 10 UNITS/ML ONE ×2 (18:38→18:53)
[2019-12-28] MEDS ORDERED: Versed 2 MG/2 ML Injection ONE (18:40)
[2019-12-28] MEDS ORDERED: SUBLIMAZE 100 MCG/2 ML ONE (18:47)
[2019-12-28] MEDS ORDERED: Sodium Chloride 0.9% 1000 ML 1,000 ML ONE (18:54)
[2019-12-28 19:14] LABS: ABO TYPING AB; Antibody Screen NEGATIVE (NEGATIVE); RH TYPING POSITIVE
[2019-12-28 19:56] LABS: CROSS MATCH (PRBC) COMPATIBLE (COMPATIBLE)
[2019-12-28] MEDS: Morphine PCA 1 MG/ML 30 ML IV PRN (20:45)
[2019-12-28 20:52] LABS: Appearance CLOUDY (CLEAR); Bilirubin NEGATIVE (NEGATIVE); Blood LARGE Ery/ul (0-5); Glucose NEGATIVE (NEGATIVE); Ketones SMALL (NEGATIVE); Leukocyte Esterase TRACE (NEGATIVE); Mucus SLIGHT /HPF (NEGATIVE); Nitrite NEGATIVE (NEGATIVE); Protein,Urine Dip 100 (Negative); RBC >101 /HPF (0-2); Specific Gravity 1.024 (1.005-1.025); Urobilinogen NEGATIVE mg/dL (0-1)
[2019-12-28] MEDS ORDERED: Phenergan 25 MG INJ IM PRN (22:13)
[2019-12-28] MEDS: KEFZOL 1 GM/50 ML PREMIX** 1 GM/50 ML IVPB IV SCH (22:58)
[2019-12-29] MEDS ORDERED: MOTRIN 400 MG PO PRN ×2 (00:33→11:44)
[2019-12-29] MEDS ORDERED: Ambien 10 MG PO PRN (00:33)
[2019-12-29] MEDS ORDERED: Zofran 4 MG/2 ML VIAL IV PRN (00:35)
[2019-12-29] MEDS ORDERED: CLARITIN 10 MG PO PRN (00:35)
[2019-12-29] MEDS ORDERED: BENADRYL 50 MG/ML IV PRN (00:35)
[2019-12-29] MEDS ORDERED: Nubain 10 MG/ML IV PRN (00:35)
[2019-12-29] MEDS: Dextrose 5%-Lr IV Solution 1000 ML 1,000 ML IV SCH ×2 (01:36→10:33)
[2019-12-29] MEDS: KEFZOL 1 GM/50 ML PREMIX** 1 GM/50 ML IVPB IV SCH ×4 (01:52→20:56)
[2019-12-29] MEDS ORDERED: MOTRIN 400 MG ONE (02:56)
[2019-12-29 03:28] LABS: Absolute Neutrophil Ct (ANC) 21.25 (1.4-6.9); BASOPHIL % 0.1 % (0.0-0.4); Basophil (Absolute #) 0.03 (0-0.4); Eosinophil (Absolute #) 0.01 (0-0.5); Hematocrit 34.3 % (35-47); Hemoglobin 10.9 gm/dl (12.0-16.0); Lymphocyte (Absolute #) 2.19 (1.0-4.6); Lymphocytes % 8.8 % (24.0-44.0); Mean Cell Volume 82.5 fl (78-100); Mean Corpuscular Hemoglobin 26.2 pg (26-32); Mean Corpuscular Hgb Concent. 31.8 g/dl (32-36); Mean Platelet Volume 9.6 fl (7.5-11.0); Monocyte (Absolute #) 1.47 (0.0-1.3); Monocytes % 5.9 % (0.0-12.0); Neutrophil % 85.2 % (36.0-66.0); Platelet Count 254 K/mm3 (150-450); Red Blood Count 4.16 M/mm3 (4.1-5.4)
[2019-12-29 04:45] LABS: Slide Review 1 YES
[2019-12-29] MEDS ORDERED: Adacel Vial IM ONE (08:00)
--- NOTE | 2019-12-29 08:31 | OP ---
SURGERY DATE/TIME: 12/28/20191810 PREOPERATIVE DIAGNOSES: 1) Arrest of decent. 2) Term intrauterine . POSTOPERATIVE DIAGNOSES: 1) Arrest of decent. 2) Term intrauterine . 3) hemorrhage. PROCEDURE: Primary low transverse section. SURGEON: Lucio Morrison M.D. ESTIMATED BLOOD LOSS: 1 liter secondary to hemorrhage. IV FLUIDS: 2200 ml of crystalloid. URINE OUTPUT: 200 cc of clear straw-colored urine. ANESTHESIA: Spinal by Morteza Middleton CRNA. SPECIMENS: Placenta was sent for pathology. DESCRIPTION OF PROCEDURE: After informed, written consent was obtained the patient was taken to the OR. She had a spinal performed in OB prior to transfer here. She was prepped and draped in the usual sterile fashion. After adequate level of anesthesia was assessed, a low transverse skin incision was made by knife and carried down through the subcutaneous fat to the level of the fascia. The fascia was nicked on both sides of the midline and extended horizontal using curved De Jesus scissors. The superior free edge of the fascia was grasped with Bud clamps and the underlying rectus muscles were dissected free. The same was repeated inferiorly. The peritoneal cavity was opened and extended horizontal. Bladder blade was inserted. A bladder flap was created and reflected over the lower uterine segment. A horizontal uterine incision was made by knife and carried down to the level of the amniotic membranes which were carefully artificially ruptured and distended in horizontal. A viable female with a strong cry present was delivered from the vertex presentation. The cord was clamped and cut and she was handed off to the awaiting nursery team. Placenta was then manually extracted from the uterus. The uterus was exteriorized. There was significant bleeding encountered with very difficult visualization due to body habitus in the peritoneal cavity. The first attempt at closing the uterine incision revealed significant bleeding following with some omentum trapped in one portion of the suture line. Therefore the suture had to be removed and then uterine incision reopened at that time of course with the running suture being removed but this allowed for take down of the omentum from the suture line and again significant blood loss with very difficult visualization. Eventually the uterine incision was closed with #1 chromic in running locked fashion which provided good hemostasis. The lateral gutters were wiped free of blood and clot after the uterus was returned to the peritoneal cavity and there was a small area of oozing at the left far aspect of the uterine incision. Figure-of-8 suture was placed with #1 chromic which improved but there was some minimal welling up in this area therefore a piece of Surgicel was placed on the left lateral aspect of the uterine incision. Again multiple rechecks revealed adequate hemostasis and good closure. Next, the fascia was closed with looped 0 PDS in a running fashion, good closure and good hemostasis were achieved at this level. The subcutaneous fat was irrigated with warm, sterile saline and any areas of bleeding were cauterized with electrocautery. Finally, the skin layer was closed with 4-0 undyed Vicryl in a running subcuticular fashion. Steri-Strips and occlusive dressing were placed over the incision. The patient had some mild tachycardia which resolved with fluid administration. I did request 2 units of packed red blood cells to be type and screened and transfused as she did develop heart rate in the 110's at one point during the surgery. Her preoperative hemoglobin was 10. Therefore I felt with the tachycardia and significant blood loss transfusion of 2 units is warranted and will recheck her hemoglobin and hematocrit following transfusion and monitor her closely.
[2019-12-29] MEDS: Colace 100 MG PO SCH ×2 (10:34→22:26)
[2019-12-29] MEDS: FERREX 150 PO SCH (10:34)
[2019-12-29] MEDS ORDERED: ULTRAM 50 MG PO PRN (11:46)
[2019-12-29] MEDS: Morphine PCA 1 MG/ML 30 ML IV PRN (14:20)
[2019-12-29] MEDS: Mylicon 80MG PO PRN (16:56)
[2019-12-29] MEDS: NORCO 5/325 MG PO PRN (19:16)
[2019-12-29] MEDS: OMNIPEN 1GM / NaCl 100ML 100 ML IV SCH ×2 (20:59→21:02)
[2019-12-29] MEDS: PITOCIN 30 UNITS/ LR 500 ML 500 ML IV SCH (21:02)
[2019-12-29 21:47] VITALS: O2SAT 98
[2019-12-30] MEDS: NORCO 5/325 MG PO PRN ×3 (00:39→09:11)
[2019-12-30] MEDS: KEFZOL 1 GM/50 ML PREMIX** 1 GM/50 ML IVPB IV SCH ×2 (02:50→10:57)
[2019-12-30] MEDS: Mylicon 80MG PO PRN (03:21)
[2019-12-30 05:02] LABS: Absolute Neutrophil Ct (ANC) 14.09 (1.4-6.9); BASOPHIL % 0.2 % (0.0-0.4); Basophil (Absolute #) 0.03 (0-0.4); Eosinophil % 0.6 % (0.00-5.0); Hematocrit 29.5 % (35-47); Hemoglobin 9.2 gm/dl (12.0-16.0); Lymphocyte (Absolute #) 2.54 (1.0-4.6); Lymphocytes % 14.2 % (24.0-44.0); Mean Cell Volume 83.6 fl (78-100); Mean Corpuscular Hemoglobin 26.1 pg (26-32); Mean Corpuscular Hgb Concent. 31.2 g/dl (32-36); Mean Platelet Volume 9.5 fl (7.5-11.0); Monocyte (Absolute #) 1.12 (0.0-1.3); Monocytes % 6.3 % (0.0-12.0); Neutrophil % 78.7 % (36.0-66.0); Platelet Count 234 K/mm3 (150-450); Red Blood Count 3.53 M/mm3 (4.1-5.4); Red Cell Distribution Width 16.1 % (11.5-14.0); White Blood Count 17.9 K/mm3 (4.0-10.5)
--- NOTE | 2019-12-30 08:12 | PCM.DS ---
Discharge Summary Date of Admission: 12/28/19 08:49 Admitting Physician: DEVORA COSTELLO Consults: Consults on Case 12/28/19 08:59 Notify Anesthesia Provider PRN 12/28/19 17:33 Notify Anesthesia Provider ROUTINE Notify Physician OF ADMISSION Primary Care Provider: DEVORA COSTELLO Allergies Allergies Influenza Virus Vaccines Allergy (Verified 12/27/19 18:33) tramadol Allergy (Verified 12/27/19 18:33) throat swells acetaminophen [From Tylenol] Adverse Reaction (Verified 12/29/19 10:23) Nausea dr costello discussed with pt she reports gi upset not true allergy ibuprofen Adverse Reaction (Verified 12/29/19 14:22) discussed with dr costello pt reports gi upset not true allergy Hospital Summary - Hospital Course Hospital Course: was admitted at 39wks for induction, had primary for arrest of descent. surgery was complicated by body habitus and required 2 units of rbc's postop in recovery. she has done great postoperatively, tolerating po intake, ambulating, has mild lochia now and her pain is controlled. had elevated wbc prior to induction, higher postop so was covered with kefzol and trending downward now. - Vitals & Intake/Output Vital Signs: Vital Signs Temperature 98.2 F 12/30/19 03:40 Pulse Rate 83 12/30/19 03:40 Respiratory Rate 20 12/29/19 20:30 Blood Pressure 105/55 12/30/19 03:40 O2 Sat by Pulse Oximetry 98 12/29/19 20:30 Intake & Output: Intake & Output 12/27/19 12/28/19 12/29/19 12/30/19 11:59 11:59 11:59 11:59 Intake Total 1850 5917 3569 Output Total 1350 Balance 1850 4619 3569 Weight 146.51 kg 146.51 kg - Lab Result Diagrams: 12/30/19 04:21 Lab Results-Last 24 Hrs: Lab Results-Last 24 Hours 12/27/19 12/30/19 Range/Units 17:15 04:21 WBC 17.9 H (4.0-10.5) K/mm3 RBC 3.53 L (4.1-5.4) M/mm3 Hgb 9.2 L (12.0-16.0) gm/dl Hct 29.5 L (35-47) % MCV 83.6 (78-100) fl MCH 26.1 (26-32) pg MCHC 31.2 L (32-36) g/dl RDW 16.1 H (11.5-14.0) % Plt Count 234 (150-450) K/mm3 MPV 9.5 (7.5-11.0) fl Gran % 78.7 H (36.0-66.0) % Eos # (Auto) 0.10 (0-0.5) Absolute Lymphs (auto) 2.54 (1.0-4.6) Absolute Monos (auto) 1.12 (0.0-1.3) Lymphocytes % 14.2 L (24.0-44.0) % Monocytes % 6.3 (0.0-12.0) % Eosinophils % 0.6 (0.00-5.0) % Basophils % 0.2 (0.0-0.4) % Absolute Granulocytes 14.09 H (1.4-6.9) Basophils # 0.03 (0-0.4) Hep Bs Antigen Non Reactive (Non Reactive) - Procedures and Test Procedures and Tests throughout Hospitalization: Therapy Orders & Screens 12/28/19 11:38 EKG STAT Comment: pt c/o chest pain Diagnosis: IUP for IOL Discharge Exam General Appearance: no apparent distress, obese Neurologic Exam: alert, oriented x 3, cooperative Respiratory Exam: normal breath sounds, lungs clear, No respiratory distress Cardiovascular Exam: regular rate/rhythm, normal heart sounds Gastrointestinal/Abdomen Exam: soft, normal bowel sounds, other (incision well approximated, steri strips intact) Extremity Exam: normal inspection, normal range of motion Final Diagnosis/Problem List - Final Discharge Diagnosis/Problem (1) delivery delivered Current Visit: Yes Status: Acute Assessment & Plan: doing well but concern for healing with body habitus and general state of hygiene of patient. discussed importance of keeping the area clean and dry when she goes home. will cover with keflex due to high risk of infection with these factors taken in to account. Code(s): O82 - ENCOUNTER FOR DELIVERY WITHOUT INDICATION (2) Elevated white blood cell count Current Visit: Yes Status: Acute Code(s): D72.829 - ELEVATED WHITE BLOOD CELL COUNT, UNSPECIFIED (3) Morbid obesity Current Visit: Yes Status: Acute Code(s): E66.01 - MORBID (SEVERE) OBESITY DUE TO EXCESS CALORIES - Discharge Disposition: Home, Self-Care Condition: Stable Prescriptions: New Docusate Sodium 100 mg [Colace 100 MG] 100 mg PO BID #30 capsule Ferrous Sulfate 325 mg [Feosol 325 mg] 325 mg PO DAILY #30 tablet Cephalexin Mh 500 mg [Keflex 500 mg] 500 mg PO TID #21 capsule Hydrocodone/APAP 5-325 Tab^^^ [Hurlock 5-325 Tablet^^^] 1 tab PO Q6HPRN PRN # 28 tablet MDD 6 PRN Reason: Pain Continue Ondansetron ODT 4 MG [Zofran Odt 4 mg] 4 mg SL Q6H PRN PRN 3 Days #10 tab.rapdis PRN Reason: Vomiting Discontinued Vits W-Ca,Fe,FA(<1Mg) [] 1 tab PO DAILY Calcium Carbonate [Tums] 200 tab PO Q2H/PRN PRN PRN Reason: Indigestion Follow up with: DEVORA COSTLELO MD [Primary Care Provider] - 1 Week
[2019-12-30] MEDS: Colace 100 MG PO SCH (09:10)
[2019-12-30] MEDS: FERREX 150 PO SCH (09:10)
[2019-12-30 17:28] VITALS: BP 120/56; PULSE 110
== END 2019-12-30 15:10 | disposition home or self-care (01) | DRG 787 ==
LOC: OB 08:49 → OBSVTOIN 12-28 08:49
PROVIDERS: ADMIT Family Medicine; ATTEND Family Medicine
PROC: 10D00Z1 Extraction of Products of Conception, Low, Open Approach (ICD-10-PCS; principal; 2019-12-28)
PROC: 0W3F0ZZ Control Bleeding in Abdominal Wall, Open Approach (ICD-10-PCS; 2019-12-28)
DX: O64.0XX0 Obstructed labor due to incomplete rotation of fetal head, not applicable or unspecified (principal); O72.1 Other immediate postpartum hemorrhage; Z3A.39 39 weeks gestation of pregnancy; Z37.0 Single live birth; D72.829 Elevated white blood cell count, unspecified; E66.01 Morbid (severe) obesity due to excess calories
CPT/HCPCS: 36415; 36430; 80307; 81001; 81003; 85025; 85610; 85730; 86850; 86900; 86901; 86922; 87086; 87340; 88307; 90471; 90715; 93005; 94799; G0378; J0290; J0690; J2250; J2270; J2590; J2795; J3010; L0625; P9016; A9270-GY

== ENCOUNTER 2021-08-14 06:49 | Emergency (ER) | payer OTHER ==
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
[2021-08-14 08:04] VITALS: BP 118/77; PULSE 62; O2SAT 98
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
== END 2021-08-14 08:39 | disposition home or self-care (01) ==
LOC: ED 06:49
DX: M79.631 Pain in right forearm (principal); S93.401A Sprain of unspecified ligament of right ankle, initial encounter; V29.9XXA Motorcycle rider (driver) (passenger) injured in unspecified traffic accident, initial encounter
CPT/HCPCS: 73090; 73610; 99283